=== PATIENT | female | born 1940 | race Caucasian/White ===

== ENCOUNTER 2017-06-06 12:08 | Inpatient (IN) | payer OTHER ==
[~2017-06-06] VITALS: Ht 165.1 cm; Wt 97.8 kg
[2017-06-06] VITALS (8 sets, daily range): BP systolic 81–157; BP diastolic 42–94
[~2017-06-06 12:08] MED LIST: ADVIL200 MG PO; APRESOLINE25 MG PO; CATAPRES0.1 MG PO; CLONIDINE HCL0.2 MG PO; CLOPIDOGREL75 MG PO; GABAPENTIN100 MG PO; HUMULIN N100 UNITS/ SC; HYDRALAZINE HCL25 MG PO; HYDROCODON-ACE1 EAC7 PO; INVANZ1 GM IM; LASIX40 MG PO; LEVOTHYROXINE25 MCG PO; LISINOPRIL40 MG PO; LOPRESSOR25 MG PO; LORAZEPAM0.5 MG PO; LOVASTATIN40 MG PO; LOVENOX30 MG/0.3 SC; LOVENOX40 MG/0.4 SC; MELOXICAM7.5 MG PO; MOBIC7.5 MG PO; NEURONTIN100 MG PO; NOVOLOG PE100 UNITS/ SC; NPH HumuLIN SC; PANTOPRAZOLE SO40 MG PO; PRINIVIL10 MG PO; PROTONIX40 MG PO; TYLENOL REGULA325 MG PO; VITAMIN D400 UNI1 PO; ZOCOR40 MG PO
[2017-06-06 12:47] LABS: HEMATOCRIT 34.4 % (36.0-46.0); MCH 27.6 PG (29.0-34.0); MCHC 31.1 G/DL (30.0-36.0); MCV 88.9 FL (83-99); MEAN PLAT.VOLUME 10.8 uM^3 (9.5-12.4); PLATELET COUNT 535 K/uL (156-360); RBC DIS.WIDTH-CV 15.4 % (11.8-14.6); RED BLOOD COUNT 3.87 M/uL (3.80-5.20)
[2017-06-06 12:56] LABS: CHLORIDE 111 mEq/L (99-109); SODIUM 137 mEq/L (136-147)
[2017-06-06 12:58] LABS: GLUCOSE 90 mg/dL (70-99)
[2017-06-06 12:59] LABS: ANION GAP 12 MEQ/L (2-14)
[2017-06-06 13:02] LABS: GFR ESTIMATE (CALCULATED) 6 mL/min/
[2017-06-06 13:04] LABS: POTASSIUM 8.5 mEq/L (3.7-5.4)
[2017-06-06 13:05] LABS: UREA NITROGEN (BUN) 154 mg/dL (9-23)
[2017-06-06 13:08] LABS: TROP-I INTERPRETATION NEGATIVE; TROPONIN-I 0.07 ng/mL (0.0-0.30)
[2017-06-06 16:03] LABS: METH RESISTANT S AUREUS PCR POSITIVE (NEGATIVE)
[2017-06-06 16:08] LABS: POINT-OF-CARE METER ID UU13113803
[2017-06-06 16:12] LABS: PROBE CHECK PASS
[2017-06-06 16:37] LABS: ADD MIUA? YES; BILIRUBIN NEGATIVE; BLOOD SMALL; COLOR YELLOW ((YELLOW)); GLUCOSE (STRIP) NEGATIVE; KETONES NEGATIVE; LEUKOCYTES NEGATIVE; NITRITE NEGATIVE; PROTEIN (STRIP) 30; SPECIFIC GRAVITY 1.012 (1.000-1.030); UROBILINOGEN 0.2 MG/DL (0.2-1.0)
[2017-06-06 16:38] LABS: POINT-OF-CARE METER ID UU13113748
[2017-06-06] MEDS ORDERED: IRON325 M1 PO (16:45)
[2017-06-06] MEDS ORDERED: VITAMIN D31000 UNI2 PO (16:45)
[2017-06-06] MEDS ORDERED: LEVOFLOXACIN250 MG PO (16:45)
[2017-06-06] MEDS ORDERED: ST. JOSEPH ASPI81 MG PO (16:46)
[2017-06-06] MEDS ORDERED: SILVER SULFADI400 GM TP (16:46)
[2017-06-06 17:50] LABS: BACTERIA RARE /HPF; EPITHELIAL CELLS RARE /HPF; MUCUS NONE SEEN /LPF; RED BLOOD CELLS 0-5 /HPF (0-5); UCUL ADDED? NO; WHITE BLOOD CELLS 0-5 /HPF (0-5)
[2017-06-06 20:28] LABS: ANION GAP 9 MEQ/L (2-14); CHLORIDE 102 MEQ/L (99-109); CREATINE KINASE 287 IU/L (1-294); GLUCOSE 104 mg/dL (70-99); SAMPLE HEMOLYSIS CHECK 0; SAMPLE ICTERIC CHECK 0; SAMPLE LIPEMIA CHECK 0; SODIUM 142 MEQ/L (136-147)
[2017-06-06 20:30] LABS: GFR ESTIMATE (CALCULATED) 18 mL/min/; POTASSIUM 3.4 MEQ/L (3.7-5.4); UREA NITROGEN (BUN) 65 mg/dL (9-23)
[2017-06-07] VITALS (17 sets, daily range): BP systolic 84–159; BP diastolic 41–82
[2017-06-07 05:43] LABS: ANION GAP 11 MEQ/L (2-14); CHLORIDE 101 MEQ/L (99-109); GLUCOSE 117 mg/dL (70-99); SAMPLE HEMOLYSIS CHECK 0; SAMPLE ICTERIC CHECK 0; SAMPLE LIPEMIA CHECK 0; SODIUM 144 MEQ/L (136-147); UREA NITROGEN (BUN) 76 mg/dL (9-23)
[2017-06-07 05:51] LABS: GFR ESTIMATE (CALCULATED) 14 mL/min/; POTASSIUM 4.3 MEQ/L (3.7-5.4)
[2017-06-07 06:12] LABS: EOSINOPHIL (%) 0.8 % (0-5); EOSINOPHIL COUNT 0.1 K/uL (0-0.3); HEMATOCRIT 27.4 % (36.0-46.0); IMMATURE GRANULOCYTE (%) 0.6 % (0.0-0.7); IMMATURE GRANULOCYTE COUNT 0.1 K/uL; INSTRUMENT ABS NEUTROPHIL CT 6.8 K/uL; LYMPHOCYTE COUNT 1.3 K/uL (1.0-2.8); MCH 28.4 PG (29.0-34.0); MCHC 33.2 G/DL (30.0-36.0); MCV 85.6 FL (83-99); MONOCYTE (%) 8.5 % (3-12); MONOCYTE COUNT 0.8 K/uL (0-0.8); NEUTROPHIL (%) 75.4 % (45-76); NEUTROPHIL COUNT 6.8 K/uL (1.8-6.4); RBC DIS.WIDTH-CV 15.2 % (11.8-14.6); RBC DIS.WIDTH-SD 47.1 % (39-53)
[2017-06-07 06:48] LABS: PLAT.SUFFICIENCY ADEQUATE
[2017-06-07 06:53] LABS: PLATELET COUNT 360 K/uL (156-360)
[2017-06-07 07:03] LABS: Estimated Average Glucose 260 mg/dL (70-123)
[2017-06-07 07:15] LABS: HEMOGLOBIN A1c (GLYCOHEMOGLOB) 10.7 % HGB (Below 5.7)
[2017-06-07 12:06] LABS: POINT-OF-CARE METER ID UU14162636; POINT-OF-CARE USER ID 612031313
[2017-06-07 13:49] LABS: UR CREATININE CONCENTRATION 55.1 MG/DL
[2017-06-07 14:15] LABS: HBSG INDEX 0.16
[2017-06-07 14:16] LABS: AHBS INDEX 0.09; HEPATITIS B SURFACE ANTIBODY Nonreactive
[2017-06-07 17:54] LABS: POINT-OF-CARE METER ID UU14162636; POINT-OF-CARE USER ID 612031313
[2017-06-07 21:38] LABS: POINT-OF-CARE METER ID UU14162636
[2017-06-08] VITALS (23 sets, daily range): BP systolic 138–195; BP diastolic 45–110
[2017-06-08 05:27] LABS: EOSINOPHIL (%) 0.5 % (0-5); EOSINOPHIL COUNT 0.1 K/uL (0-0.3); HEMATOCRIT 29.2 % (36.0-46.0); IMMATURE GRANULOCYTE (%) 0.5 % (0.0-0.7); IMMATURE GRANULOCYTE COUNT 0.1 K/uL; INSTRUMENT ABS NEUTROPHIL CT 6.9 K/uL; LYMPHOCYTE COUNT 1.4 K/uL (1.0-2.8); MCH 28.8 PG (29.0-34.0); MCHC 32.9 G/DL (30.0-36.0); MCV 87.7 FL (83-99); MEAN PLAT.VOLUME 10.7 uM^3 (9.5-12.4); MONOCYTE (%) 9.8 % (3-12); MONOCYTE COUNT 0.9 K/uL (0-0.8); NEUTROPHIL (%) 73.9 % (45-76); NEUTROPHIL COUNT 6.9 K/uL (1.8-6.4); PLATELET COUNT 363 K/uL (156-360); RBC DIS.WIDTH-CV 15.3 % (11.8-14.6); RBC DIS.WIDTH-SD 48.7 % (39-53); RED BLOOD COUNT 3.33 M/uL (3.80-5.20); WHITE BLOOD COUNT 9.3 K/uL (4.1-10.2)
[2017-06-08 06:43] LABS: ALKALINE PHOSPHATASE 94 IU/L (3-129); ANION GAP 8 MEQ/L (2-14); CHLORIDE 100 MEQ/L (99-109); GFR ESTIMATE (CALCULATED) 17 mL/min/; MAGNESIUM 1.5 mg/dl (1.3-2.7); POTASSIUM 4.1 MEQ/L (3.7-5.4); SAMPLE HEMOLYSIS CHECK 0; SAMPLE ICTERIC CHECK 0; SAMPLE LIPEMIA CHECK 0; SODIUM 142 MEQ/L (136-147); TOTAL BILIRUBIN 0.4 MG/DL (0.0-1.0); UREA NITROGEN (BUN) 64 mg/dL (9-23)
[2017-06-08 06:46] LABS: GLUCOSE 77 mg/dL (70-99)
[2017-06-08 08:05] LABS: POINT-OF-CARE METER ID UU14174217
[2017-06-08 12:34] LABS: POINT-OF-CARE METER ID UU14208751
[2017-06-08 16:41] LABS: POINT-OF-CARE METER ID UU14208751
[2017-06-09 00:45] VITALS: BP 181/77
[2017-06-09 06:00] LABS: EOSINOPHIL (%) 0.2 % (0-5); HEMATOCRIT 34.7 % (36.0-46.0); IMMATURE GRANULOCYTE (%) 0.7 % (0.0-0.7); IMMATURE GRANULOCYTE COUNT 0.1 K/uL; INSTRUMENT ABS NEUTROPHIL CT 11.2 K/uL; LYMPHOCYTE COUNT 1.5 K/uL (1.0-2.8); MCH 27.4 PG (29.0-34.0); MCHC 30.8 G/DL (30.0-36.0); MEAN PLAT.VOLUME 10.7 uM^3 (9.5-12.4); MONOCYTE (%) 8.7 % (3-12); MONOCYTE COUNT 1.2 K/uL (0-0.8); NEUTROPHIL (%) 79.4 % (45-76); NEUTROPHIL COUNT 11.2 K/uL (1.8-6.4); PLATELET COUNT 458 K/uL (156-360); RBC DIS.WIDTH-CV 15.4 % (11.8-14.6); RBC DIS.WIDTH-SD 49.4 % (39-53); WHITE BLOOD COUNT 14.1 K/uL (4.1-10.2)
[2017-06-09 07:56] LABS: ANION GAP 13 MEQ/L (2-14); CHLORIDE 99 MEQ/L (99-109); GFR ESTIMATE (CALCULATED) 19 mL/min/; MAGNESIUM 1.6 mg/dl (1.3-2.7); POTASSIUM 4.5 MEQ/L (3.7-5.4); SAMPLE HEMOLYSIS CHECK 0; SAMPLE ICTERIC CHECK 0; SAMPLE LIPEMIA CHECK 0; SODIUM 140 MEQ/L (136-147); UREA NITROGEN (BUN) 58 mg/dL (9-23)
[2017-06-09 07:58] LABS: GLUCOSE 205 mg/dL (70-99)
[2017-06-09 08:00] VITALS: BP 189/75
[2017-06-09 13:40] VITALS: BP 171/72
[2017-06-09 16:00] VITALS: BP 193/71
[2017-06-09 16:48] LABS: POINT-OF-CARE METER ID UU13113698
[2017-06-09 21:12] LABS: POINT-OF-CARE USER ID ENVMNS
[2017-06-09 23:57] VITALS: BP 128/53
[2017-06-10] VITALS (7 sets, daily range): BP systolic 98–164; BP diastolic 57–89
[2017-06-10 05:53] LABS: BASOPHIL COUNT 0.1 K/uL (0-0.1); EOSINOPHIL (%) 1.6 % (0-5); EOSINOPHIL COUNT 0.3 K/uL (0-0.3); HEMATOCRIT 34.9 % (36.0-46.0); IMMATURE GRANULOCYTE (%) 0.9 % (0.0-0.7); IMMATURE GRANULOCYTE COUNT 0.1 K/uL; INSTRUMENT ABS NEUTROPHIL CT 12.3 K/uL; LYMPHOCYTE COUNT 1.6 K/uL (1.0-2.8); MCH 27.4 PG (29.0-34.0); MCHC 30.4 G/DL (30.0-36.0); MCV 90.2 FL (83-99); MEAN PLAT.VOLUME 10.4 uM^3 (9.5-12.4); MONOCYTE (%) 7.4 % (3-12); MONOCYTE COUNT 1.2 K/uL (0-0.8); NEUTROPHIL (%) 79.6 % (45-76); NEUTROPHIL COUNT 12.3 K/uL (1.8-6.4); PLATELET COUNT 413 K/uL (156-360); RBC DIS.WIDTH-CV 15.1 % (11.8-14.6); RBC DIS.WIDTH-SD 49.6 % (39-53); RED BLOOD COUNT 3.87 M/uL (3.80-5.20); WHITE BLOOD COUNT 15.5 K/uL (4.1-10.2)
[2017-06-10 06:23] LABS: ANION GAP 8 MEQ/L (2-14); CHLORIDE 103 MEQ/L (99-109); GFR ESTIMATE (CALCULATED) 22 mL/min/; POTASSIUM 4.3 MEQ/L (3.7-5.4); SAMPLE HEMOLYSIS CHECK 0; SAMPLE ICTERIC CHECK 0; SAMPLE LIPEMIA CHECK 0; SODIUM 143 MEQ/L (136-147); UREA NITROGEN (BUN) 52 mg/dL (9-23)
[2017-06-10 06:25] LABS: GLUCOSE 62 mg/dL (70-99)
[2017-06-10 11:03] LABS: POINT-OF-CARE METER ID UU13113698
[2017-06-10 14:40] LABS: HEMATOCRIT 38.2 % (36.0-46.0); MCH 27.8 PG (29.0-34.0); MCHC 30.6 G/DL (30.0-36.0); MCV 90.7 FL (83-99); MEAN PLAT.VOLUME 10.2 uM^3 (9.5-12.4); PLATELET COUNT 447 K/uL (156-360); RBC DIS.WIDTH-CV 15.1 % (11.8-14.6); RBC DIS.WIDTH-SD 49.7 % (39-53); RED BLOOD COUNT 4.21 M/uL (3.80-5.20); WHITE BLOOD COUNT 16.9 K/uL (4.1-10.2)
[2017-06-10 14:58] LABS: ANION GAP 8 MEQ/L (2-14); CHLORIDE 102 MEQ/L (99-109); POTASSIUM 4.3 MEQ/L (3.7-5.4); SAMPLE HEMOLYSIS CHECK 0; SAMPLE ICTERIC CHECK 0; SAMPLE LIPEMIA CHECK 0; SODIUM 141 MEQ/L (136-147)
[2017-06-10 15:04] LABS: GFR ESTIMATE (CALCULATED) 23 mL/min/; UREA NITROGEN (BUN) 53 mg/dL (9-23)
[2017-06-10 15:05] LABS: GLUCOSE 107 mg/dL (70-99)
[2017-06-10 15:15] LABS: ADD MIUA? YES; BILIRUBIN NEGATIVE; BLOOD NEGATIVE; COLOR YELLOW ((YELLOW)); GLUCOSE (STRIP) NEGATIVE; KETONES NEGATIVE; LEUKOCYTES NEGATIVE; NITRITE NEGATIVE; PROTEIN (STRIP) 100; SPECIFIC GRAVITY 1.013 (1.000-1.030); UROBILINOGEN 0.2 MG/DL (0.2-1.0)
[2017-06-10 15:18] LABS: BACTERIA NONE SEEN /HPF; EPITHELIAL CELLS NONE SEEN /HPF; MUCUS NONE SEEN /LPF; RED BLOOD CELLS 0-5 /HPF (0-5); UCUL ADDED? NO; WHITE BLOOD CELLS 0-5 /HPF (0-5)
[2017-06-10 21:28] LABS: POINT-OF-CARE METER ID UU13113725
[2017-06-10 22:22] LABS: POINT-OF-CARE METER ID UU13113725; POINT-OF-CARE USER ID 608261329
[2017-06-11 03:45] VITALS: BP 147/70
[2017-06-11 06:12] LABS: POINT-OF-CARE METER ID UU13113725
[2017-06-11 06:48] LABS: HEMATOCRIT 36.1 % (36.0-46.0); MCH 28.7 PG (29.0-34.0); MCHC 31.6 G/DL (30.0-36.0); MCV 90.9 FL (83-99); MEAN PLAT.VOLUME 10.3 uM^3 (9.5-12.4); PLATELET COUNT 344 K/uL (156-360); RBC DIS.WIDTH-CV 15.1 % (11.8-14.6); RBC DIS.WIDTH-SD 50.1 % (39-53); RED BLOOD COUNT 3.97 M/uL (3.80-5.20); WHITE BLOOD COUNT 12.3 K/uL (4.1-10.2)
[2017-06-11 07:39] LABS: ANION GAP 6 MEQ/L (2-14); CHLORIDE 102 MEQ/L (99-109); GFR ESTIMATE (CALCULATED) 21 mL/min/; GLUCOSE 93 mg/dL (70-99); POTASSIUM 4.4 MEQ/L (3.7-5.4); SAMPLE HEMOLYSIS CHECK 0; SAMPLE ICTERIC CHECK 0; SAMPLE LIPEMIA CHECK 0; SODIUM 141 MEQ/L (136-147); UREA NITROGEN (BUN) 57 mg/dL (9-23)
[2017-06-11 07:58] VITALS: BP 132/63
[2017-06-11 11:30] LABS: POINT-OF-CARE METER ID UU13113725
[2017-06-11 16:07] LABS: POINT-OF-CARE METER ID UU13113725
[2017-06-11 16:10] VITALS: BP 148/61
[2017-06-11 19:03] VITALS: BP 152/62
[2017-06-11 23:00] VITALS: BP 121/51
[2017-06-12 02:50] VITALS: BP 135/57
[2017-06-12 06:37] LABS: HEMATOCRIT 34.6 % (36.0-46.0); MCH 27.3 PG (29.0-34.0); MCHC 30.1 G/DL (30.0-36.0); MCV 90.8 FL (83-99); MEAN PLAT.VOLUME 10.3 uM^3 (9.5-12.4); PLATELET COUNT 323 K/uL (156-360); RBC DIS.WIDTH-SD 49.8 % (39-53); RED BLOOD COUNT 3.81 M/uL (3.80-5.20); WHITE BLOOD COUNT 12.6 K/uL (4.1-10.2)
[2017-06-12 07:02] LABS: ANION GAP 7 MEQ/L (2-14); CHLORIDE 103 MEQ/L (99-109); GFR ESTIMATE (CALCULATED) 22 mL/min/; GLUCOSE 137 mg/dL (70-99); POTASSIUM 4.7 MEQ/L (3.7-5.4); SAMPLE HEMOLYSIS CHECK 0; SAMPLE ICTERIC CHECK 0; SAMPLE LIPEMIA CHECK 0; SODIUM 140 MEQ/L (136-147); UREA NITROGEN (BUN) 57 mg/dL (9-23)
[2017-06-12 08:12] VITALS: BP 105/70
[2017-06-12 11:26] VITALS: BP 108/68
[2017-06-12 15:41] LABS: POINT-OF-CARE METER ID UU13113725
[2017-06-12 16:20] VITALS: BP 108/76
[2017-06-12 19:25] VITALS: BP 140/50
[2017-06-12 21:52] LABS: POINT-OF-CARE METER ID UU13113725
[2017-06-12 23:50] VITALS: BP 160/85
[2017-06-13] VITALS (7 sets, daily range): BP systolic 106–182; BP diastolic 58–74
[2017-06-13 06:10] LABS: POINT-OF-CARE METER ID UU13113725
[2017-06-13 06:31] LABS: HEMATOCRIT 34.1 % (36.0-46.0); MCH 28.4 PG (29.0-34.0); MCHC 31.1 G/DL (30.0-36.0); MCV 91.4 FL (83-99); MEAN PLAT.VOLUME 10.2 uM^3 (9.5-12.4); PLATELET COUNT 295 K/uL (156-360); RBC DIS.WIDTH-CV 15.2 % (11.8-14.6); RBC DIS.WIDTH-SD 50.4 % (39-53); RED BLOOD COUNT 3.73 M/uL (3.80-5.20); WHITE BLOOD COUNT 11.1 K/uL (4.1-10.2)
[2017-06-13 06:58] LABS: ANION GAP 8 MEQ/L (2-14); CHLORIDE 104 MEQ/L (99-109); GFR ESTIMATE (CALCULATED) 23 mL/min/; GLUCOSE 155 mg/dL (70-99); POTASSIUM 4.6 MEQ/L (3.7-5.4); SAMPLE HEMOLYSIS CHECK 0; SAMPLE ICTERIC CHECK 0; SAMPLE LIPEMIA CHECK 0; SODIUM 142 MEQ/L (136-147); UREA NITROGEN (BUN) 59 mg/dL (9-23)
[2017-06-13 11:46] LABS: POINT-OF-CARE METER ID UU13113725
[2017-06-13] MEDS ORDERED: SUCRALFATE1 GM PO (12:27)
[2017-06-13] MEDS ORDERED: LINEZOLID600 MG PO (12:29)
[2017-06-13] MEDS ORDERED: BACTROBAN OINTM22 GM TP (12:32)
[2017-06-13] MEDS ORDERED: LORAZEPAM0.5 MG PO (15:52)
== END 2017-06-13 17:14 | DRG 682 ==
LOC: EME 12:08 → 5EAST 13:23 → EDOF 13:23 → 4WEST 13:23 → ENRESERV 13:25 → EDOF 13:34 → ENRESERV 13:50 → 4WEST 14:34 → ENRESERV 06-08 14:34 → CANRESERV 06-08 14:34 → 4WEST 06-08 21:28 → ENRESERV 06-08 21:32 → 4EAST 06-08 22:50 → ENRESERV 06-10 11:26 → 5EAST 06-10 15:48
PROVIDERS: Emergency Medicine; Hospitalist; Internal Medicine; Internal Medicine Critical Care Medicine; Internal Medicine Nephrology; Physician Assistant
DX: N17.0 Acute kidney failure with tubular necrosis (principal); G93.41 Metabolic encephalopathy; E87.4 Mixed disorder of acid-base balance; L03.115 Cellulitis of right lower limb; L03.116 Cellulitis of left lower limb; J98.11 Atelectasis; L97.821 Non-pressure chronic ulcer of other part of left lower leg limited to breakdown of skin; L97.811 Non-pressure chronic ulcer of other part of right lower leg limited to breakdown of skin; F05 Delirium due to known physiological condition; E66.01 Morbid (severe) obesity due to excess calories; N18.9 Chronic kidney disease, unspecified; E11.22 Type 2 diabetes mellitus with diabetic chronic kidney disease; E11.622 Type 2 diabetes mellitus with other skin ulcer; E11.649 Type 2 diabetes mellitus with hypoglycemia without coma; E78.5 Hyperlipidemia, unspecified; E86.0 Dehydration; E86.1 Hypovolemia; E87.5 Hyperkalemia; I12.9 Hypertensive chronic kidney disease with stage 1 through stage 4 chronic kidney disease, or unspecified chronic kidney disease; I87.2 Venous insufficiency (chronic) (peripheral); I87.8 Other specified disorders of veins; I35.0 Nonrheumatic aortic (valve) stenosis; L89.312 Pressure ulcer of right buttock, stage 2; I80.03 Phlebitis and thrombophlebitis of superficial vessels of lower extremities, bilateral; Z99.2 Dependence on renal dialysis; I48.2 Chronic atrial fibrillation; N64.59 Other signs and symptoms in breast; B36.8 Other specified superficial mycoses; F03.90 Unspecified dementia, unspecified severity, without behavioral disturbance, psychotic disturbance, mood disturbance, and anxiety; G47.33 Obstructive sleep apnea (adult) (pediatric); G25.3 Myoclonus; Z22.322 Carrier or suspected carrier of Methicillin resistant Staphylococcus aureus; Z79.4 Long term (current) use of insulin; Z79.82 Long term (current) use of aspirin; Z68.39 Body mass index [BMI] 39.0-39.9, adult; Z83.3 Family history of diabetes mellitus
CPT/HCPCS: 70450; 71010; 71020; 76770; 80048; 80048 91; 80053; 80069; 81003; 82436; 82550 91; 82570; 82948; 83036; 83605; 83735; 83935; 84100; 84133; 84300; 84484; 85025; 85027; 86706; 87040; 87070; 87075; 87077; 87086; 87147; 87186; 87205; 87340; 87641; 89190; 93005; 93306; 99281; 99285; C1752; J0360; J0610; J0696; J1644; J1815; J2270; J2405; J2765; J7030; J7050; J7070; S0028

== ENCOUNTER 2017-07-10 17:17 | Inpatient (IN) | payer OTHER ==
[~2017-07-10] VITALS: Ht 165.1 cm; Wt 117.6 kg
[~2017-07-10 17:17] MED LIST changes: +BACTROBAN OINTM22 GM TP; +IRON325 M1 PO; +LEVOFLOXACIN250 MG PO; +LINEZOLID600 MG PO; +SILVER SULFADI400 GM TP; +ST. JOSEPH ASPI81 MG PO; +SUCRALFATE1 GM PO; +VITAMIN D31000 UNI2 PO
[2017-07-10 18:06] LABS: HEMATOCRIT 28.3 % (36.0-46.0); MCH 27.2 PG (29.0-34.0); MCHC 30.4 G/DL (30.0-36.0); MCV 89.6 FL (83-99); MEAN PLAT.VOLUME 11.8 uM^3 (9.5-12.4); PLATELET COUNT 289 K/uL (156-360); RBC DIS.WIDTH-CV 15.9 % (11.8-14.6); RBC DIS.WIDTH-SD 52.4 % (39-53); RED BLOOD COUNT 3.16 M/uL (3.80-5.20)
[2017-07-10 18:12] LABS: INTER. NORMALIZED RATIO 1.3; PROTHROMBIN TIME 14.4 SEC (10.2-12.9)
[2017-07-10 18:15] LABS: CHLORIDE 115 mEq/L (99-109); POTASSIUM 4.2 mEq/L (3.7-5.4); SODIUM 138 mEq/L (136-147)
[2017-07-10 18:17] LABS: GLUCOSE 133 mg/dL (70-99)
[2017-07-10 18:18] LABS: ANION GAP 4 MEQ/L (2-14)
[2017-07-10 18:19] LABS: TOTAL BILIRUBIN 0.3 mg/dL (0.0-1.0)
[2017-07-10 18:20] LABS: ALKALINE PHOSPHATASE 126 IU/L (3-129)
[2017-07-10 18:21] LABS: GFR ESTIMATE (CALCULATED) 33 mL/min/
[2017-07-10 18:22] LABS: UREA NITROGEN (BUN) 24 mg/dL (9-23)
[2017-07-10 18:24] LABS: TROP-I INTERPRETATION NEGATIVE; TROPONIN-I 0.01 ng/mL (0.0-0.30)
[2017-07-10] MEDS ORDERED: CHILDREN'S1000 UNIT PO (21:36)
[2017-07-10] MEDS ORDERED: FEOSOL325 MG PO (21:37)
[2017-07-10] MEDS ORDERED: LEVO-T25 MCG PO (21:37)
[2017-07-10] MEDS ORDERED: ATIVAN0.5 MG PO ×2 (21:38→22:02)
[2017-07-10] MEDS ORDERED: LOVASTATIN40 MG PO (21:39)
[2017-07-10] MEDS ORDERED: PANTOPRAZOLE SO40 MG PO (21:40)
[2017-07-10] MEDS ORDERED: NOVOLIN N100 UNITS/ SC (21:42)
[2017-07-10] MEDS ORDERED: METOPROLOL TART25 MG PO (21:44)
[2017-07-10] MEDS ORDERED: CARAFATE1 GM PO (21:44)
[2017-07-10] MEDS ORDERED: CATAPRES0.1 MG PO (21:47)
[2017-07-10] MEDS ORDERED: APRESOLINE10 MG PO (21:51)
[2017-07-10] MEDS ORDERED: TYLENOL REGULA325 MG PO (22:01)
[2017-07-10] MEDS ORDERED: DULCOLAX10 MG PR (22:03)
[2017-07-10] MEDS ORDERED: MILK OF MAGN PO (22:04)
[2017-07-10] MEDS ORDERED: MIRALAX17 GM PO (22:04)
[2017-07-10] MEDS ORDERED: TUMS500 MG PO (22:07)
[2017-07-10 23:37] VITALS: BP 135/82
[2017-07-11 03:14] LABS: POINT-OF-CARE METER ID UU13113831
[2017-07-11 03:37] VITALS: BP 135/57
[2017-07-11 05:43] LABS: HEMATOCRIT 29.7 % (36.0-46.0); MCV 90.5 FL (83-99); MEAN PLAT.VOLUME 11.9 uM^3 (9.5-12.4); PLATELET COUNT 328 K/uL (156-360); RBC DIS.WIDTH-CV 15.9 % (11.8-14.6); RBC DIS.WIDTH-SD 52.9 % (39-53); RED BLOOD COUNT 3.28 M/uL (3.80-5.20)
[2017-07-11 06:02] LABS: ANION GAP 8 MEQ/L (2-14); CHLORIDE 114 MEQ/L (99-109); GFR ESTIMATE (CALCULATED) 36 mL/min/; GLUCOSE 120 mg/dL (70-99); POTASSIUM 4.5 MEQ/L (3.7-5.4); SAMPLE HEMOLYSIS CHECK 0; SAMPLE ICTERIC CHECK 0; SAMPLE LIPEMIA CHECK 0; SODIUM 142 MEQ/L (136-147); UREA NITROGEN (BUN) 23 mg/dL (9-23)
[2017-07-11 07:30] VITALS: BP 140/71
[2017-07-11 11:30] VITALS: BP 189/77
[2017-07-11 12:07] LABS: POINT-OF-CARE METER ID UU13113700
[2017-07-11 13:03] LABS: INTER. NORMALIZED RATIO 1.3; PROTHROMBIN TIME 14.5 SEC (10.2-12.9)
[2017-07-11 13:06] LABS: PTT 32.9 SEC (25-37)
[2017-07-11 15:29] VITALS: BP 170/78
[2017-07-11 17:00] LABS: POINT-OF-CARE METER ID UU14162513
[2017-07-11 21:22] VITALS: BP 188/73
[2017-07-11 21:42] LABS: POINT-OF-CARE METER ID UU14162513
[2017-07-12] VITALS (7 sets, daily range): BP systolic 104–158; BP diastolic 51–80
[2017-07-12 05:54] LABS: HEMATOCRIT 30.9 % (36.0-46.0); MCH 27.1 PG (29.0-34.0); MCHC 30.1 G/DL (30.0-36.0); MCV 90.1 FL (83-99); MEAN PLAT.VOLUME 11.8 uM^3 (9.5-12.4); PLATELET COUNT 369 K/uL (156-360); RBC DIS.WIDTH-CV 15.9 % (11.8-14.6); RBC DIS.WIDTH-SD 52.2 % (39-53); RED BLOOD COUNT 3.43 M/uL (3.80-5.20); WHITE BLOOD COUNT 11.1 K/uL (4.1-10.2)
[2017-07-12 08:30] LABS: POINT-OF-CARE METER ID UU13113831
[2017-07-12 12:37] LABS: POINT-OF-CARE METER ID UU13113700
[2017-07-12 17:59] LABS: POINT-OF-CARE METER ID UU13113831
[2017-07-12 22:14] LABS: POINT-OF-CARE METER ID UU13113831
[2017-07-13 02:59] LABS: ADD MIUA? YES; BILIRUBIN NEGATIVE; BLOOD SMALL; COLOR AMBER ((YELLOW)); GLUCOSE (STRIP) NEGATIVE; KETONES NEGATIVE; LEUKOCYTES LARGE; NITRITE NEGATIVE; PROTEIN (STRIP) 100; SPECIFIC GRAVITY 1.028 (1.000-1.030); UROBILINOGEN 0.2 MG/DL (0.2-1.0)
[2017-07-13 03:26] LABS: BACTERIA 3+ /HPF; CRYSTALS PRESENT; EPITHELIAL CELLS 1+ /HPF; MUCUS 1+ /LPF; RED BLOOD CELLS 0-5 /HPF (0-5); UCUL ADDED? YES; WHITE BLOOD CELLS TNTC /HPF (0-5)
[2017-07-13 03:27] LABS: AMORPHOUS URATES CRYSTALS 1+
[2017-07-13 04:34] VITALS: BP 137/93
[2017-07-13 06:30] LABS: INTER. NORMALIZED RATIO 1.6; PROTHROMBIN TIME 17.6 SEC (10.2-12.9)
[2017-07-13 06:33] LABS: PTT 77.2 SEC (25-37)
[2017-07-13 07:15] LABS: HEMATOCRIT 29.3 % (36.0-46.0); MCH 27.7 PG (29.0-34.0); MCHC 30.4 G/DL (30.0-36.0); MCV 91.3 FL (83-99); MEAN PLAT.VOLUME 12.2 uM^3 (9.5-12.4); PLATELET COUNT 309 K/uL (156-360); RBC DIS.WIDTH-CV 15.9 % (11.8-14.6); RBC DIS.WIDTH-SD 52.7 % (39-53); RED BLOOD COUNT 3.21 M/uL (3.80-5.20); WHITE BLOOD COUNT 14.2 K/uL (4.1-10.2)
[2017-07-13 07:44] LABS: ANION GAP 8 MEQ/L (2-14); CHLORIDE 113 MEQ/L (99-109); GFR ESTIMATE (CALCULATED) 29 mL/min/; GLUCOSE 93 mg/dL (70-99); POTASSIUM 4.3 MEQ/L (3.7-5.4); SAMPLE HEMOLYSIS CHECK 0; SAMPLE ICTERIC CHECK 0; SAMPLE LIPEMIA CHECK 0; SODIUM 139 MEQ/L (136-147); UREA NITROGEN (BUN) 27 mg/dL (9-23)
[2017-07-13 07:45] VITALS: BP 140/92
[2017-07-13 08:13] LABS: POINT-OF-CARE METER ID UU13113831
[2017-07-13 10:42] VITALS: BP 148/90
[2017-07-13 12:28] LABS: POINT-OF-CARE METER ID UU13113831
[2017-07-13 13:47] LABS: C DIFF TOXIN POSITIVE (NEGATIVE)
[2017-07-13 13:50] LABS: PROBE CHECK PASS
[2017-07-13 15:46] VITALS: BP 150/78
[2017-07-13 17:38] LABS: POINT-OF-CARE METER ID UU13113831
[2017-07-13 21:08] LABS: POINT-OF-CARE METER ID UU13113700
[2017-07-13 21:22] VITALS: BP 101/44
[2017-07-14 04:10] VITALS: BP 127/60
[2017-07-14 06:23] LABS: BASOPHIL COUNT 0.1 K/uL (0-0.1); EOSINOPHIL (%) 0.8 % (0-5); EOSINOPHIL COUNT 0.1 K/uL (0-0.3); HEMATOCRIT 30.8 % (36.0-46.0); IMMATURE GRANULOCYTE (%) 1.1 % (0.0-0.7); IMMATURE GRANULOCYTE COUNT 0.2 K/uL; MCH 27.2 PG (29.0-34.0); MCHC 29.9 G/DL (30.0-36.0); MCV 91.1 FL (83-99); MONOCYTE COUNT 1.4 K/uL (0-0.8); NEUTROPHIL (%) 78.3 % (45-76); PLATELET COUNT 294 K/uL (156-360); RBC DIS.WIDTH-SD 53.1 % (39-53); RED BLOOD COUNT 3.38 M/uL (3.80-5.20); WHITE BLOOD COUNT 17.9 K/uL (4.1-10.2)
[2017-07-14 06:56] LABS: ANION GAP 9 MEQ/L (2-14); CHLORIDE 115 MEQ/L (99-109); GFR ESTIMATE (CALCULATED) 21 mL/min/; GLUCOSE 90 mg/dL (70-99); POTASSIUM 4.6 MEQ/L (3.7-5.4); SAMPLE HEMOLYSIS CHECK 0; SAMPLE ICTERIC CHECK 0; SAMPLE LIPEMIA CHECK 0; SODIUM 141 MEQ/L (136-147); UREA NITROGEN (BUN) 34 mg/dL (9-23)
[2017-07-14 08:11] LABS: POINT-OF-CARE METER ID UU13113831
[2017-07-14 09:36] VITALS: BP 115/71
[2017-07-14 11:52] VITALS: BP 109/50
[2017-07-14 13:26] LABS: BASE EXCESS -7.3 mEq/L (-3 to +3); BICARBONATE 17.9 mEq/L (22-26); METHEMOGLOBIN 1.8 % (0-1.5); PCO2 34 mm Hg (35-45); PO2 76 mm Hg (80-100); pH 7.33 (7.35-7.45)
[2017-07-14 13:27] LABS: COMMENTS - BLOOD GASES NEG A+C+; DEVICE RA; SITE RR; TOTAL RESP RATE 16 resp/min
[2017-07-14 15:52] VITALS: BP 118/48
[2017-07-14 17:52] LABS: POINT-OF-CARE METER ID UU13113831
[2017-07-14 21:41] LABS: POINT-OF-CARE METER ID UU13113831
[2017-07-14 22:46] LABS: POINT-OF-CARE METER ID UU13113831
[2017-07-15] VITALS (7 sets, daily range): BP systolic 99–149; BP diastolic 49–74
[2017-07-15 05:25] LABS: INTER. NORMALIZED RATIO 2.1; PROTHROMBIN TIME 23.3 SEC (10.2-12.9)
[2017-07-15 05:43] LABS: ANION GAP 9 MEQ/L (2-14); CHLORIDE 115 MEQ/L (99-109); GFR ESTIMATE (CALCULATED) 16 mL/min/; GLUCOSE 99 mg/dL (70-99); POTASSIUM 5.2 MEQ/L (3.7-5.4); SAMPLE HEMOLYSIS CHECK 1; SAMPLE ICTERIC CHECK 0; SAMPLE LIPEMIA CHECK 0; SODIUM 139 MEQ/L (136-147); UREA NITROGEN (BUN) 40 mg/dL (9-23)
[2017-07-15 05:46] LABS: BASOPHIL COUNT 0.1 K/uL (0-0.1); EOSINOPHIL (%) 0.5 % (0-5); EOSINOPHIL COUNT 0.1 K/uL (0-0.3); HEMATOCRIT 29.3 % (36.0-46.0); IMMATURE GRANULOCYTE (%) 1.2 % (0.0-0.7); IMMATURE GRANULOCYTE COUNT 0.3 K/uL; LYMPHOCYTE COUNT 1.7 K/uL (1.0-2.8); MCH 27.5 PG (29.0-34.0); MCHC 29.7 G/DL (30.0-36.0); MCV 92.7 FL (83-99); MEAN PLAT.VOLUME 12.4 uM^3 (9.5-12.4); MONOCYTE (%) 8.9 % (3-12); NEUTROPHIL (%) 81.5 % (45-76); PLATELET COUNT 267 K/uL (156-360); RBC DIS.WIDTH-CV 16.3 % (11.8-14.6); RBC DIS.WIDTH-SD 55.6 % (39-53); RED BLOOD COUNT 3.16 M/uL (3.80-5.20); WHITE BLOOD COUNT 22.1 K/uL (4.1-10.2)
[2017-07-15 10:10] LABS: POINT-OF-CARE METER ID UU13113831
[2017-07-15 12:24] LABS: POINT-OF-CARE METER ID UU14162513
[2017-07-15 21:28] LABS: POINT-OF-CARE METER ID UU13113831
[2017-07-16 04:00] VITALS: BP 102/49
[2017-07-16 08:04] LABS: POINT-OF-CARE METER ID UU13113700
[2017-07-16 08:54] LABS: ANION GAP 11 MEQ/L (2-14); CHLORIDE 110 MEQ/L (99-109); GFR ESTIMATE (CALCULATED) 13 mL/min/; GLUCOSE 121 mg/dL (70-99); POTASSIUM 4.6 MEQ/L (3.7-5.4); SAMPLE HEMOLYSIS CHECK 0; SAMPLE ICTERIC CHECK 0; SAMPLE LIPEMIA CHECK 0; SODIUM 137 MEQ/L (136-147); UREA NITROGEN (BUN) 48 mg/dL (9-23)
[2017-07-16 08:59] LABS: EOSINOPHIL (%) 1.2 % (0-5); EOSINOPHIL COUNT 0.2 K/uL (0-0.3); IMMATURE GRANULOCYTE (%) 1.2 % (0.0-0.7); IMMATURE GRANULOCYTE COUNT 0.2 K/uL; INSTRUMENT ABS NEUTROPHIL CT 9.9 K/uL; LYMPHOCYTE COUNT 1.3 K/uL (1.0-2.8); MCH 27.2 PG (29.0-34.0); MCHC 29.6 G/DL (30.0-36.0); MCV 91.8 FL (83-99); MEAN PLAT.VOLUME 12.4 uM^3 (9.5-12.4); MONOCYTE (%) 10.4 % (3-12); MONOCYTE COUNT 1.3 K/uL (0-0.8); NEUTROPHIL (%) 76.8 % (45-76); NEUTROPHIL COUNT 9.9 K/uL (1.8-6.4); PLATELET COUNT 247 K/uL (156-360); RBC DIS.WIDTH-CV 16.5 % (11.8-14.6); RBC DIS.WIDTH-SD 55.4 % (39-53); RED BLOOD COUNT 2.94 M/uL (3.80-5.20); WHITE BLOOD COUNT 12.9 K/uL (4.1-10.2)
[2017-07-16 09:15] VITALS: BP 112/54
[2017-07-16 11:41] VITALS: BP 122/56
[2017-07-16 11:58] LABS: POINT-OF-CARE METER ID UU14162513
[2017-07-16 15:40] VITALS: BP 114/49; BP 114/59
[2017-07-16 17:34] LABS: POINT-OF-CARE METER ID UU14162513
[2017-07-16 20:00] VITALS: BP 110/60
[2017-07-16 21:53] LABS: POINT-OF-CARE METER ID UU14162513
[2017-07-17 01:00] VITALS: BP 85/41
[2017-07-17 04:20] VITALS: BP 98/53
[2017-07-17 06:41] LABS: HEMATOCRIT 24.7 % (36.0-46.0); MCH 28.1 PG (29.0-34.0); MCHC 31.6 G/DL (30.0-36.0); MCV 88.8 FL (83-99); MEAN PLAT.VOLUME 12.5 uM^3 (9.5-12.4); PLATELET COUNT 252 K/uL (156-360); RBC DIS.WIDTH-CV 16.7 % (11.8-14.6); RBC DIS.WIDTH-SD 53.9 % (39-53); RED BLOOD COUNT 2.78 M/uL (3.80-5.20); WHITE BLOOD COUNT 8.9 K/uL (4.1-10.2)
[2017-07-17 07:02] LABS: ANION GAP 8 MEQ/L (2-14); CHLORIDE 110 MEQ/L (99-109); GFR ESTIMATE (CALCULATED) 12 mL/min/; GLUCOSE 191 mg/dL (70-99); POTASSIUM 4.7 MEQ/L (3.7-5.4); SAMPLE HEMOLYSIS CHECK 0; SAMPLE ICTERIC CHECK 0; SAMPLE LIPEMIA CHECK 0; SODIUM 137 MEQ/L (136-147); UREA NITROGEN (BUN) 50 mg/dL (9-23)
[2017-07-17 07:39] VITALS: BP 144/81
[2017-07-17 09:45] LABS: FERRITIN 412 NG/ML (10-291); IRON 23 MCG/DL (35-150)
[2017-07-17 12:16] VITALS: BP 138/68
[2017-07-17 12:56] LABS: POINT-OF-CARE METER ID UU13113831
[2017-07-17 17:12] VITALS: BP 137/73
[2017-07-17 19:50] VITALS: BP 155/66
[2017-07-17 23:06] LABS: POINT-OF-CARE METER ID UU13113831
[2017-07-18 00:10] VITALS: BP 148/65
[2017-07-18 04:41] VITALS: BP 148/61
[2017-07-18 05:27] LABS: BASOPHIL COUNT 0.1 K/uL (0-0.1); EOSINOPHIL (%) 1.2 % (0-5); EOSINOPHIL COUNT 0.1 K/uL (0-0.3); HEMATOCRIT 27.9 % (36.0-46.0); IMMATURE GRANULOCYTE (%) 2.1 % (0.0-0.7); IMMATURE GRANULOCYTE COUNT 0.3 K/uL; INSTRUMENT ABS NEUTROPHIL CT 8.4 K/uL; INTER. NORMALIZED RATIO 1.7; LYMPHOCYTE COUNT 2.2 K/uL (1.0-2.8); MCH 27.5 PG (29.0-34.0); MCHC 30.5 G/DL (30.0-36.0); MCV 90.3 FL (83-99); MEAN PLAT.VOLUME 12.1 uM^3 (9.5-12.4); MONOCYTE (%) 9.5 % (3-12); MONOCYTE COUNT 1.2 K/uL (0-0.8); NEUTROPHIL (%) 68.9 % (45-76); NEUTROPHIL COUNT 8.4 K/uL (1.8-6.4); PLATELET COUNT 290 K/uL (156-360); PROTHROMBIN TIME 18.5 SEC (10.2-12.9); RBC DIS.WIDTH-CV 16.6 % (11.8-14.6); RED BLOOD COUNT 3.09 M/uL (3.80-5.20); WHITE BLOOD COUNT 12.2 K/uL (4.1-10.2)
[2017-07-18 05:38] LABS: PTT 42.5 SEC (25-37)
[2017-07-18 05:54] LABS: ANION GAP 10 MEQ/L (2-14); CHLORIDE 111 MEQ/L (99-109); GFR ESTIMATE (CALCULATED) 13 mL/min/; GLUCOSE 110 mg/dL (70-99); POTASSIUM 4.7 MEQ/L (3.7-5.4); SAMPLE HEMOLYSIS CHECK 0; SAMPLE ICTERIC CHECK 0; SAMPLE LIPEMIA CHECK 0; SODIUM 138 MEQ/L (136-147); UREA NITROGEN (BUN) 55 mg/dL (9-23)
[2017-07-18 08:11] VITALS: BP 132/87
[2017-07-18 12:12] VITALS: BP 128/74
[2017-07-18 12:25] LABS: POINT-OF-CARE METER ID UU13113700
[2017-07-18 15:27] VITALS: BP 130/75
[2017-07-18 20:00] VITALS: BP 126/62
[2017-07-19 00:42] VITALS: BP 134/62
[2017-07-19 04:30] VITALS: BP 126/58
[2017-07-19 05:23] LABS: EOSINOPHIL (%) 1.2 % (0-5); EOSINOPHIL COUNT 0.1 K/uL (0-0.3); HEMATOCRIT 29.1 % (36.0-46.0); IMMATURE GRANULOCYTE COUNT 0.2 K/uL; INSTRUMENT ABS NEUTROPHIL CT 7.4 K/uL; MCH 28.1 PG (29.0-34.0); MCHC 31.3 G/DL (30.0-36.0); MCV 89.8 FL (83-99); MONOCYTE (%) 8.9 % (3-12); NEUTROPHIL (%) 69.3 % (45-76); NEUTROPHIL COUNT 7.4 K/uL (1.8-6.4); PLATELET COUNT 295 K/uL (156-360); RBC DIS.WIDTH-CV 17.2 % (11.8-14.6); RBC DIS.WIDTH-SD 55.5 % (39-53); RED BLOOD COUNT 3.24 M/uL (3.80-5.20); WHITE BLOOD COUNT 10.7 K/uL (4.1-10.2)
[2017-07-19 05:48] LABS: ANION GAP 11 MEQ/L (2-14); CHLORIDE 112 MEQ/L (99-109); GFR ESTIMATE (CALCULATED) 15 mL/min/; POTASSIUM 4.6 MEQ/L (3.7-5.4); SAMPLE HEMOLYSIS CHECK 0; SAMPLE ICTERIC CHECK 0; SAMPLE LIPEMIA CHECK 0; SODIUM 140 MEQ/L (136-147); UREA NITROGEN (BUN) 49 mg/dL (9-23)
[2017-07-19 05:49] LABS: GLUCOSE 184 mg/dL (70-99)
[2017-07-19 08:57] VITALS: BP 131/68
[2017-07-19 12:23] VITALS: BP 190/106
[2017-07-19] MEDS ORDERED: FLAGYL500 MG PO (13:38)
[2017-07-19] MEDS ORDERED: VANCOCIN 250 M250 MG PO (13:38)
[2017-07-19] MEDS ORDERED: ELIQUIS5 MG PO (13:44)
[2017-07-19] MEDS ORDERED: GABAPENTIN100 MG PO (13:45)
[2017-07-19] MEDS ORDERED: ENDOCET 5-3251 EACH PO (13:45)
[2017-07-19 15:48] VITALS: BP 132/77
== END 2017-07-19 16:59 | DRG 948 ==
LOC: EME 17:17 → EDOF 21:56 → 5WEST 21:56 → ENRESERV 21:57 → 5WEST 23:08 → ENRESERV 07-11 12:03 → CANRESERV 07-11 14:07 → ENRESERV 07-12 10:54 → CANRESERV 07-12 23:06 → ENRESERV 07-12 23:06 → 5WEST 07-19 16:59
PROVIDERS: Emergency Medicine; Internal Medicine; Internal Medicine Nephrology; Nurse Practitioner Adult Health; Nurse Practitioner Family; Physician Assistant Medical
DX: R23.0 Cyanosis (principal); A04.72 Enterocolitis due to Clostridium difficile, not specified as recurrent; E87.2 Acidosis; N17.9 Acute kidney failure, unspecified; T50.8X5A Adverse effect of diagnostic agents, initial encounter; L89.150 Pressure ulcer of sacral region, unstageable; E11.22 Type 2 diabetes mellitus with diabetic chronic kidney disease; L97.829 Non-pressure chronic ulcer of other part of left lower leg with unspecified severity; I12.9 Hypertensive chronic kidney disease with stage 1 through stage 4 chronic kidney disease, or unspecified chronic kidney disease; N18.2 Chronic kidney disease, stage 2 (mild); N14.1 Nephropathy induced by other drugs, medicaments and biological substances; I99.8 Other disorder of circulatory system; I25.118 Atherosclerotic heart disease of native coronary artery with other forms of angina pectoris; D64.9 Anemia, unspecified; E03.9 Hypothyroidism, unspecified; E78.5 Hyperlipidemia, unspecified; I87.2 Venous insufficiency (chronic) (peripheral); F03.90 Unspecified dementia, unspecified severity, without behavioral disturbance, psychotic disturbance, mood disturbance, and anxiety; R32 Unspecified urinary incontinence; M19.90 Unspecified osteoarthritis, unspecified site; Z66 Do not resuscitate; E66.01 Morbid (severe) obesity due to excess calories; Z68.41 Body mass index [BMI] 40.0-44.9, adult; I25.2 Old myocardial infarction; Z79.4 Long term (current) use of insulin; Z86.14 Personal history of Methicillin resistant Staphylococcus aureus infection; Z89.619 Acquired absence of unspecified leg above knee; Z79.82 Long term (current) use of aspirin
CPT/HCPCS: 36600; 71010; 71275; 76770; 80048; 80053; 80069; 81003; 82436; 82570; 82575; 82607; 82728; 82746; 82803; 82948; 83540; 83605; 83935; 84133; 84300; 84466; 84484; 84550; 85025; 85027; 85610; 85730; 87040; 87086; 87493; 89190; 93005; 93306; 93931; 93971; 99281; 99285; G0378; J1650; J1815; J2270; J7030; J7120; S0030